=== PATIENT | female | born 1930 | race Caucasian/White ===

== ENCOUNTER 2016-09-15 11:05 | Emergency (ER) | payer OTHER, MEDICARE ==
[2016-09-15 11:10] VITALS: TEMP 98
[2016-09-15 12:50] VITALS: RESP 16
[2016-09-15 12:51] VITALS: PULSE 73; O2SAT 95
[2016-09-15 12:52] VITALS: BP 170/78
--- NOTE | 2016-09-15 13:09 | UCPHY ---
H & P Time Seen by Provider: 09/15/16 12:42 Patient Type: Established HPI/ROS: CHIEF COMPLAINT: Elevated blood pressure History by patient HISTORY OF PRESENT ILLNESS: 86 woman with a history of hypertension on metoprolol and AMBROSIO-inhibitor presents referred from her nutrition specialist's office because of elevated blood pressure. Patient went in for routine eye exam today and they noticed extremely elevated blood pressure. Patient denied any associated symptoms, specifically no chest pain, shortness of breath, headache, focal numbness or weakness or visual difficulties. She has had no recent leg swelling. She has been taking her medicines as prescribed. She has been keeping a log of her blood pressures and noticed that from time to time they get high. REVIEW OF SYSTEMS: As in HPI, and all other systems reviewed and are negative Smoking Status: Never smoked Physical Exam: General Appearance: Alert, pleasant, well-appearing. Eyes: Pupils equal and round no pallor or injection. ENT, Mouth: Mucous membranes moist. Respiratory: Normal, effort, There are no retractions, lungs are clear to auscultation. Cardiovascular: Regular rate and rhythm. Gastrointestinal: Abdomen is soft and nontender, no masses, bowel sounds normal. Neurological: Awake, alert and oriented x 3, cranial nerves 2-12 intact, no pronator drift, normal gait, no pronator drift Skin: Warm and dry, no rashes. Musculoskeletal: Neck is supple nontender. Extremities are symmetrical, full range of motion. Psychiatric: Patient has normal affect, there is no agitation. Constitutional: Initial Vital Signs Temperature (C) 36.6 C 09/15/16 11:07 Heart Rate 85 09/15/16 11:07 Respiratory Rate 18 09/15/16 11:07 Blood Pressure 215/113 H 09/15/16 11:07 O2 Sat (%) 97 09/15/16 11:07 O2 Delivery Mode Room Air Allergies/Adverse Reactions: aspirin Allergy (Verified 09/15/16 11:30) Penicillins Allergy (Verified 09/15/16 11:30) Home Medications: Medication Instructions Recorded Benazepril HCl 07/09/15 Levothyroxine 07/09/15 Metoprolol Tartrate 01/09/16 Preservision Softgel 01/09/16 Medical Decision Making ED Course/Re-evaluation: Pleasant 86-year-old woman presents with elevated blood pressure in her eye doctor's office. Initial blood pressure here was also quite high however on re- evaluation her blood pressure came down significantly. Patient was asymptomatic with this and there is no evidence of acute hypertensive emergency. I am recommending close follow-up with her primary care physician and she has an appointment pending tomorrow for this. Departure - Departure Disposition: Home, Routine, Self-Care Clinical Impression: Elevated blood pressure reading in office with diagnosis of hypertension Condition: Good Instructions: Hypertension (ED) Additional Instructions: You were seen by Dr. Radha Lake today. Return for any worsening or new concerns. Follow up with their regular doctor as scheduled tomorrow. Referrals: Lula Sexton MD [Primary Care Provider] - As per Instructions - PQRS PQRS Measurement: NA
== END 2016-09-15 13:10 | disposition home or self-care (01) ==
LOC: CED 11:05
DX: I10 Essential (primary) hypertension (principal); Z88.0 Allergy status to penicillin; Z88.6 Allergy status to analgesic agent
CPT/HCPCS: 99213-PO; G0463-PO

== ENCOUNTER → 2018-02-16 | Outpatient (CLI) | payer OTHER, MEDICARE | LOC: CIMAGING 14:50 | PROVIDERS: ATTEND Family Medicine | DX: R22.41 Localized swelling, mass and lump, right lower limb (principal); M71.21 Synovial cyst of popliteal space [Baker], right knee; E03.9 Hypothyroidism, unspecified; I10 Essential (primary) hypertension | CPT/HCPCS: 93971-PO ==

== ENCOUNTER 2018-07-16 15:13 | Emergency (ER) | payer OTHER, MEDICARE | END 2018-07-16 15:32 | disposition left against medical advice (07) | LOC: CED 15:13 | DX: Z53.21 Procedure and treatment not carried out due to patient leaving prior to being seen by health care provider (principal) ==